=== PATIENT | male | born 1995 | race Caucasian/White ===

== ENCOUNTER 2021-03-06 17:47 | Emergency (ER) | payer OTHER ==
[~2021-03-06] VITALS: Ht 172.7 cm; Wt 113.4 kg
[2021-03-06 17:57] VITALS: BP 144/77
[2021-03-06 20:08] VITALS: BP 144/77
--- NOTE | 2021-03-06 20:08 | NUR ---
Patient discharged with v/s stable. Written and verbal after care instructions given and explained. Patient verbalized understanding. Ambulatory with steady gait. All questions addressed prior to discharge. Advised to follow up with PMD.
== END 2021-03-06 20:08 | disposition home or self-care (01) ==
LOC: MED 17:47
DX: F41.9 Anxiety disorder, unspecified (principal); F12.90 Cannabis use, unspecified, uncomplicated
CPT/HCPCS: 93005; 96372; 99283